=== PATIENT | female | born 1990 | race Caucasian/White ===

== ENCOUNTER 2017-01-21 18:53 | Emergency (ER) | payer BC ==
[2017-01-21 19:16] VITALS: BP 124/82
--- NOTE | 2017-01-21 20:56 | EDM.PDOC ---
ED HPI - General Chief Complaint: HEALTH SERVICE WORKER Problem Stated Complaint: Vaginal bleeding Time Seen by Provider: 01/21/17 19:25 Source of Information: Reports: Patient, RN notes reviewed History Limitations: Reports: No limitations - History of Present Illness INITIAL COMMENTS - FREE TEXT/NARRATIVE: 26 year old female presents to the ED with a sudden gush of dark red vaginal bleeding. This happened less than 1 hour prior to arrival to the ED. Upon arrival, the bleeding has improved and is not described as spotting. She has very mild pelvic cramping. She is 12 weeks, 1 day gestation with LMP of 10/27. She is 3, para 1. She's had 1 previous early first trimester miscarriage. She denies fever, chills, abdominal pain, nausea, vomiting, and urinary symptoms. Her OBGYN is Dr. Fuentes. She is unsure of her blood type. 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 Denies: fever, chills, diaphoresis Respiratory: Reports: No Symptoms Cardiovascular: Reports: No symptoms. Denies: Lightheadedness, Syncope GI/Abdominal: Reports: No symptoms. Denies: Abdominal pain, Nausea, Vomiting : Reports: other (vaginal bleeding) ED EXAM - Physical Exam Exam: See Below Exam Limited By: No limitations General Appearance: alert, WD/WN, no apparent distress Respiratory/Chest: no respiratory distress, lungs clear, normal breath sounds Cardiovascular: regular rate, rhythm (Female) Exam: deferred for placenta previa movement: not appreciated Neurological: alert, oriented, normal cognition Course - Vital Signs Last Recorded V/S: Last Vital Signs Temp 98.1 F 01/21/17 19:00 Pulse 84 01/21/17 19:00 Resp 18 01/21/17 19:00 BP 124/82 01/21/17 19:00 Pulse Ox 99 01/21/17 19:00 - Orders/Labs/Meds Orders: Active Orders 24 hr Category Date Time Status OB 1st Tri Sgl 1st Gest [US] Stat Exams 01/21/17 19:38 Taken ABO/RH TYPE [BBK] Stat Lab 01/21/17 20:03 Results PATIENT RETYPE [BBK] Stat Lab 01/21/17 20:03 Results Labs: Laboratory Tests 01/21/17 01/21/17 01/21/17 Range/Units 20:03 20:03 20:03 WBC 10.70 H (3.98-10.04) K/mm3 RBC 3.73 L (3.98-5.22) M/mm3 Hgb 11.1 L (11.2-15.7) gm/L Hct 32.7 L (34.1-44.9) % MCV 87.7 (79.4-94.8) fl MCH 29.8 (25.6-32.2) pg MCHC 33.9 (32.2-35.5) g/dl RDW Std Deviation 41.9 (36.4-46.3) fL Plt Count 268 (182-369) K/mm3 MPV 10.4 (9.4-12.3) fl Neut % (Auto) 68.9 (34.0-71.1) % Lymph % (Auto) 22.0 (19.3-51.7) % Cassia % (Auto) 7.4 (4.7-12.5) % Eos % (Auto) 1.3 (0.7-5.8) Baso % (Auto) 0.2 (0.1-1.2) % Neut # (Auto) 7.38 H (1.56-6.13) K/mm3 Lymph # (Auto) 2.35 (1.18-3.74) K/mm3 Cassia # (Auto) 0.79 H (0.24-0.36) K/mm3 Eos # (Auto) 0.14 (0.04-0.36) K/mm3 Baso # (Auto) 0.02 (0.01-0.08) K/mm3 HCG, Quant 13095.0 mIU/mL Blood Type A POSITIVE - Re-Assessments/Exams Free Text/Narrative Re-Assessment/Exam: CBC reveals an H&H of 11 and 32. Hcg is 36,000. Blood type is A positive. Transabdominal OB ultrasound read by [employer], impression: 1. Single viable intrauterine gestation with estimated gestational age 13 weeks , 0 days 2. Small area of placental abruption. This area is hypoechoic suggesting subacute to remove bleeding. Close follow-up suggested. Called and spoke to [employer] electronics tech. He recommends pelvic rest and close f/u with Dr. Fuentes or [facility]. Patient notified of findings. She and her significant other were thoroughly educated on return precautions and f/u instructions. Departure - Departure Time of Disposition: 21:19 Disposition: Home, Self-Care 01 Condition: good Clinical Impression: Placental abruption Qualifiers: Trimester: first trimester Qualified Code(s): O45.91 - Premature separation of placenta, unspecified, first trimester Forms: ED Department Discharge Additional Instructions: Rest: no heavy lifting, no intercourse, no exercise, no riding horse, no ATV riding, no tampons No working Return to ER with any increase in bleeding, dizziness, lightheadedness, or worsening cramping Follow-up with Dr. Johnson tomorrow if you continue to have bleeding and cramping throughout the night. Follow-up with Dr. Fuentes on Sunday if bleeding and cramping improve. - My Orders Last 24 Hours: My Active Orders 01/21/17 19:38 OB 1st Tri Sgl 1st Gest [US] Stat 01/21/17 20:03 ABO/RH TYPE [BBK] Stat PATIENT RETYPE [BBK] Stat - Assessment/Plan Last 24 Hours: My Active Orders 01/21/17 19:38 OB 1st Tri Sgl 1st Gest [US] Stat 01/21/17 20:03 ABO/RH TYPE [BBK] Stat PATIENT RETYPE [BBK] Stat
--- NOTE | 2017-01-22 10:34 | US ---
Obstetrical ultrasound: Multiple real-time images were obtained transabdominally. Comparison: No previous obstetrical ultrasound. Date: LMP: LMP given as 10/27/16, MARINA 08/03/17, gestational age 12 weeks 2 days Current ultrasound: MARINA 07/29/17, gestational age 13 weeks 0 days Single intrauterine gestation is seen. Amniotic fluid volume is normal. Embryo is identified. Minimal subchorionic hemorrhage is seen. Maternal ovaries are seen which appear unremarkable. Measurements: [place]-rump length: 66.97 mm - 13 weeks 0 days Cervical length: 5.02 cm Heart rate: 158 bpm Impression: 1. Single intrauterine gestation. Dates as noted above. 2. Small subchorionic hemorrhage. No other complicating process is seen by ultrasound at this time. Diagnostic code #3 I agree with preliminary report issued by [employer] (preliminary report dictated on 01/21/17, 9:58 PM Central Time)
== END 2017-01-21 21:26 | disposition home or self-care (01) ==
LOC: JD.ED 18:53
DX: O45.91 Premature separation of placenta, unspecified, first trimester (principal); Z3A.13 13 weeks gestation of pregnancy
CPT/HCPCS: 36415; 76801; 76801-26; 84702; 85025; 86900; 86901; 99283; 99284-25